=== PATIENT | male | born 1945 | race Caucasian/White ===

== ENCOUNTER → 2016-08-23 | Outpatient (REF) ==
[~2016-08-23] MED LIST: GLUMETZA500 MG PO; LEVOTHYROXIN0.075 MG PO; MOTRIN800 MG PO; NABUMETONE500 MG PO; PRILOSEC 20MG20 MG PO; TERAZOSIN5 MG PO; ULTRAM 50MG TAB50 MG PO; [UNRECOGNIZED DRUG - OTHER] IM
== END ==
LOC: ZLAB.WCH 16:12
DX: Z01.89 Encounter for other specified special examinations (principal)

== ENCOUNTER → 2016-12-14 | Outpatient (REF) | LOC: ZLAB.WCH 18:16 | DX: Z01.89 Encounter for other specified special examinations (principal) ==

== ENCOUNTER → 2017-06-29 | Outpatient (REF) ==
[2017-06-29 13:05] LABS: THYROID STIMULATING HORMONE 4.45 uIU/mL (0.465-4.680)
[2017-06-29 18:57] LABS: PSA-TOTAL 0.31 ng/mL (0-4)
== END ==
LOC: ZLAB.WCH 12:19
PROVIDERS: Internal Medicine
DX: Z01.89 Encounter for other specified special examinations (principal)
CPT/HCPCS: G0103

== ENCOUNTER → 2017-11-27 | Outpatient (CLI) | payer MEDICARE | LOC: COL.VAS 09:35 | DX: I08.0 Rheumatic disorders of both mitral and aortic valves (principal) ==

== ENCOUNTER → 2017-12-18 | Outpatient (REF) ==
[2017-12-18 16:36] LABS: PSA-TOTAL 0.22 ng/mL (0-4)
[2017-12-18 16:41] LABS: THYROID STIMULATING HORMONE 3.16 uIU/mL (0.465-4.680)
== END ==
LOC: ZLAB.WCH 15:53
PROVIDERS: Internal Medicine
DX: Z01.89 Encounter for other specified special examinations (principal)
CPT/HCPCS: G0103

== ENCOUNTER → 2018-01-14 | Outpatient (REF) | LOC: ZLAB.WCH 15:56 | DX: Z01.89 Encounter for other specified special examinations (principal) ==

== ENCOUNTER → 2018-04-29 | Outpatient (REF) | LOC: ZLAB.WCH 09:13 | DX: Z01.89 Encounter for other specified special examinations (principal) ==

== ENCOUNTER → 2018-07-22 | Outpatient (REF) ==
[2018-07-22 19:26] LABS: IRON,SERUM 97 ug/dL (35-150)
[2018-07-22 19:35] LABS: TOTAL IRON BINDING CAPACITY 315 ug/dL (261-462)
[2018-07-22 20:02] LABS: FERRITIN 168 ng/mL (18-464)
== END ==
LOC: ZLAB.WCH 18:52
PROVIDERS: Internal Medicine
DX: Z01.89 Encounter for other specified special examinations (principal)

== ENCOUNTER → 2018-10-23 | Outpatient (REF) | LOC: ZLAB.WCH 14:00 | DX: Z01.89 Encounter for other specified special examinations (principal) ==

== ENCOUNTER 2020-11-04 12:24 | Outpatient (CLI) | payer MEDICARE ==
[2020-11-04 17:17] VITALS: BP 137/57; PULSE 68; TEMP 98.8
[2020-11-04] MEDS ORDERED: IPRATROPIUM BROM3 M1 IH (18:42)
[2020-11-04] MEDS ORDERED: ASPIRIN 81M81 MG/TA2 PO (18:42)
[2020-11-04] MEDS ORDERED: LIPITOR 40MG TA40 MG PO (18:43)
[2020-11-04] MEDS ORDERED: FERROUS SU325 MG/TAB PO (18:43)
[2020-11-04] MEDS ORDERED: TENORMIN 2525 MG/TAB PO (18:43)
[2020-11-04] MEDS ORDERED: SYNTHROID0.075 MG/T PO (18:45)
[2020-11-04] MEDS ORDERED: GLUCOTROL10 MG PO (18:45)
[2020-11-04] MEDS ORDERED: COZAAR 25MG25 MG/TAB PO (18:45)
[2020-11-04] MEDS ORDERED: TRELEGY ELLIPT1 EACH IH (18:46)
[2020-11-04] MEDS ORDERED: FLOMAX 0.40.4 MG/CAP PO (18:46)
[2020-11-04] MEDS ORDERED: PRILOSEC 20MG20 MG PO (18:46)
== END 2020-11-04 18:47 | disposition home or self-care (01) ==
LOC: EUO 12:24
DX: E87.1 Hypo-osmolality and hyponatremia (principal)
CPT/HCPCS: J7030

== ENCOUNTER 2024-03-09 07:39 | Day surgery (SDC) | payer MEDICARE ==
[~2024-03-09] VITALS: Ht 177.8 cm; Wt 100.2 kg
[~2024-03-09 07:39] MED LIST changes: +ASPIRIN 81M81 MG/TA2 PO; +COZAAR 25MG25 MG/TAB PO; +FERROUS SU325 MG/TAB PO; +FLOMAX 0.40.4 MG/CAP PO; +GLUCOTROL10 MG PO; +IPRATROPIUM BROM3 M1 IH; +LIPITOR 40MG TA40 MG PO; +LR 1,000 ML IV SCH; +Ondansetron 4 MG/2 ML VIAL IV PRN; +SYNTHROID0.075 MG/T PO; +TENORMIN 2525 MG/TAB PO; +TRELEGY ELLIPT1 EACH IH
[2024-03-09] MEDS ORDERED: ASPIRIN E.C. 8181 MG PO (08:56)
[2024-03-09] MEDS ORDERED: LODINE200 MG PO (08:58)
[2024-03-09] MEDS ORDERED: COZAAR100 MG PO (08:59)
[2024-03-09] MEDS ORDERED: INSULIN 70/3100 U/ML SQ (09:00)
[2024-03-09] MEDS ORDERED: VIAGRA100 M1 (09:02)
[2024-03-09] MEDS ORDERED: fentaNYL 50 MCG/ML 2 ML VIAL ONE (09:24)
[2024-03-09] MEDS ORDERED: Lidocaine PF 2% (20 MG/ML) 5 ML VIAL ONE (09:24)
[2024-03-09 10:00] VITALS: BP 143/57; PULSE 58
[2024-03-09 10:15] VITALS: BP 135/60; PULSE 55
[2024-03-09 10:30] VITALS: BP 128/66; PULSE 60
[2024-03-09 13:05] VITALS: BP 170/81; PULSE 67; TEMP 97.7
--- NOTE | 2024-03-09 14:10 | NUR ---
1000 PATIENT RETURNS TO [facility] [place] [facility] VIA CART. PT AWAKE AND ALERT. RESPIRATIONS UNLABORED. AMBULATED TO RECLINER CHAIR WITH 2:1 SBA. PT DENIES NAUSEA OR ABDOMINAL PAIN. HOOKED UP TO MONITOR AND VS OBTAINED. CALL LIGHT AT SIDE AND DARLENE (FRIEND) PRESENT. 1005 PATIENT TOLERATING MUFFIN AND COFFEE WITHOUT NAUSEA OR DIFFICULTY SWALLOWING. 1010 IN ROOM SPEAKING WITH PATIENT. 1020 D/C INSTRUCTIONS REVIEWED WITH PATIENT. PT VERBALIZED UNDERSTANDING AND A COPY OF INSTRUCTIONS PROVIDED IN D/C FOLDER. 1025 PATIENT DRESSES SELF. 1035 PATIENT DISCHARGED FROM UNIT VIA W/C TO A PERSONAL VEHICLE. PT LEFT HOSPITAL IN STABLE CONDITION.
== END 2024-03-09 10:35 | disposition home or self-care (01) ==
LOC: SDCO 07:39
DX: Z12.11 Encounter for screening for malignant neoplasm of colon (principal); K64.0 First degree hemorrhoids; K57.30 Diverticulosis of large intestine without perforation or abscess without bleeding; I10 Essential (primary) hypertension; K21.9 Gastro-esophageal reflux disease without esophagitis; J44.9 Chronic obstructive pulmonary disease, unspecified; Z79.899 Other long term (current) drug therapy; Z87.891 Personal history of nicotine dependence
CPT/HCPCS: J2704; J3010; J7120